=== PATIENT | male | born 1965 ===

== ENCOUNTER 2016-07-17 10:30 | Inpatient (IN) | payer OTHER ==
[~2016-07-17] VITALS: Ht 165.1 cm; Wt 79.8 kg
[2016-08-07] VITALS (10 sets, daily range): BP systolic 113–145; BP diastolic 78–102
[2016-08-07] MEDS ORDERED: ceFAZolin 2gm/50ml Premix 50 ML IVPB ONE (07:00)
[2016-08-07] MEDS ORDERED: Surgicel 4in x 8in TOPIC ONE (10:49)
[2016-08-07] MEDS ORDERED: Thrombin 5000 units TOPIC ONE (10:49)
[2016-08-07] MEDS ORDERED: Bacitracin 50000 Units Vial ONE (10:50)
[2016-08-07] MEDS ORDERED: Vancomycin 1gm inj IVPB ONE (10:50)
[2016-08-07] MEDS ORDERED: Bupivacaine w/Epi 0.5% 30ml Vial INJ ONE (10:50)
[2016-08-07] MEDS ORDERED: SIMVASTATIN20 MG ORAL (11:09)
[2016-08-07] MEDS ORDERED: METFORMIN HCL500 M1 ORAL (11:09)
--- NOTE | 2016-08-07 11:12 | Pre-Procedure Note/Attestation ---
Pre-Procedure Note/Attestation Complete Prior to Procedure Planned Procedure: not applicable Procedure Narrative: Anterior cervical discectomy and fusion of C56, 45 Indications for Procedure Pre-Operative Diagnosis: herniation C56,45 Attestation I attest that I discussed the nature of the procedure; its benefits; risks and complications; and alternatives (and the risks and benefits of such alternatives ), prior to the procedure, with the patient (or the patient's legal printing sales representative). I attest that, if there was a reasonable possibility of needing a blood transfusion, the patient (or the patient's legal printing sales representative) was given the [facility] standardized written summary, pursuant to the Omar Beto Blood Safety Act ([place] Health and Safety Code # 1645, as amended). I attest that I re-evaluated the patient just prior to the surgery and that there has been no change in the patient's H&P, except as documented below: GISELA DONIS Aug 07, 2016 11:12
--- NOTE | 2016-08-07 11:13 | Brief Operative Note ---
Immediate Post Operative Note Operative Note Chief Complaint: intractable neck pain and arm pain Pre-op Diagnosis: herniation C56,45 Procedure: Anterior discectomy and fusion of C45 and 56 Post-op Diagnosis: same as pre-op Findings: consistent w/pre-op dx studies Surgeon: Filippo Customer Program Specialist: Jessie Anesthesiologist: Lorenzo Anesthesia: general Specimen: none Complications: none Condition: stable Estimated Blood Loss: minimal Implant(s) used?: Yes - Nuvsive Interlock C disc 6 Peek GISELA DONIS Aug 07, 2016 11:13
[2016-08-07] MEDS ORDERED: Sterile Water Irrig 1000ml IRRIG ONE (12:00)
[2016-08-07] MEDS ORDERED: NS Irrig 1000ml ONE (12:00)
[2016-08-07] MEDS ORDERED: Lidocaine 1% MPF 10mg/ml 5ml ONE (12:00)
[2016-08-07] MEDS ORDERED: Glycopyrrolate 0.2mg/ml 1ml Vial ONE (12:00)
[2016-08-07] MEDS ORDERED: fentaNYL 250mcg/5ml ONE (12:00)
[2016-08-07] MEDS ORDERED: fentaNYL 100 mcg/2 mL IV ONE (12:00)
[2016-08-07] MEDS ORDERED: Neostigmine 1mg/ml 10ml Inj ONE (12:00)
[2016-08-07] MEDS ORDERED: LR 1000ml ONE (12:00)
[2016-08-07] MEDS ORDERED: Propofol 10mg/ml 20ml IV ONE (12:00)
[2016-08-07] MEDS ORDERED: Zemuron 50mg/5ml Inj IV ONE (12:00)
[2016-08-07] MEDS ORDERED: LR 1000ml 1,000 ML IVLG SCH (13:22)
--- NOTE | 2016-08-07 13:22 | Anethesia Preoperative Eval ---
Anesthesia Pre-op PMH/ROS General Date of Evaluation: Aug 07, 2016 Time of Evaluation: 12:06 Anesthesiologist: Lorenzo ASA Score: ASA 3 Mallampati Score Class I : Soft palate, uvula, fauces, pillars visible Class II: Soft palate, uvula, fauces visible Class III: Soft palate, base of uvula visible Class IV: Only hard plate visible Mallampati Classification: Class III Surgeon: Filippo Anesthesia History: none Social History: current smoker Family History: no anesthesia problems Allergies: Coded Allergies: No Known Allergies (Unverified , 08/04/16) Medications: see eMAR Past Medical History Cardiovascular: Reports: HTN, other - HL Endocrine: Reports: DM Other: obesity - BMI 30 PSxH Narrative: R Shoulder SX, RIH repair Anesthesia Pre-op Phys. Exam Physician Exam Last Vital Signs Date Time Temp Pulse Resp B/P Pulse Ox O2 Delivery O2 Flow Rate FiO2 08/07/16 10:55 97.4 60 18 113/78 96 Room Air Constitutional: NAD Neurologic: CN 2-12 intact Cardiovascular: RRR Respiratory: CTA Gastrointestinal: S/NT/ND Airway Exam Mallampati Score: Class III MO: limited ROM: limited Teeth: missing Anesthesia Pre-op A/P Risk Assessment & Plan Assessment: ASA 3 Plan: GA, BIS, Glidescope Status Change Before Surgery: No Pre-Antibiotics Dru Grams Ancef IV Given Within 1 Hr of Incision: Yes Time Given: 12:21 Stefan Ventura MD Aug 07, 2016 13:22
--- NOTE | 2016-08-07 13:25 | Immediate Post-Op Evaluation ---
Immediate Post-Op Evalulation Immediate Post-Op Evalulation Procedure: ACDF C4-5, C5-6 Date of Evaluation: Aug 07, 2016 Time of Evaluation: 14:53 IV Fluids: 1000 LR Blood Products: 0 Estimated Blood Loss: 25 Urinary Output: 300 Blood Pressure Systolic: 146 Blood Pressure Diastolic: 102 Pulse Rate: 83 Respiratory Rate: 16 O2 Sat by Pulse Oximetry: 100 Temperature (Fahrenheit): 97 Pain Score (1-10): 3 Nausea: No Vomiting: No Complications 0 Patient Status: awake, reacts, patent, extubated, none Hydration Status: adequate Dru Grams Ancef IV Given Within 1 Hr of Incision: Yes Time Given: 12:21 Stefan Ventura MD Aug 07, 2016 13:25
--- NOTE | 2016-08-07 13:26 | 48 Hour Post Anesthesia Eval ---
Post Anesthesia Evaluation Procedure: ACDF C4-5, C5-6 Date of Evaluation: Aug 07, 2016 Time of Evaluation: 16:56 Blood Pressure Systolic: 137 0: 83 Pulse Rate: 72 Respiratory Rate: 18 Temperature (Fahrenheit): 98.2 O2 Sat by Pulse Oximetry: 99 Airway: patent Nausea: No Vomiting: No Pain Intensity: 3 Hydration Status: adequate Cardiopulmonary Status: Stable Mental Status/LOC: patient returned to baseline Follow-up Care/Observations: 0 Post-Anesthesia Complications: 0 Follow-up care needed: N/A Stefan Ventura MD Aug 07, 2016 13:26
[2016-08-07] MEDS ORDERED: Midazolam 2mg/2ml Inj IVP PRN (13:30)
[2016-08-07] MEDS ORDERED: LORazepam Inj 2mg/ml 1ml IV PRN (13:30)
[2016-08-07] MEDS ORDERED: Ketorolac 60mg Inj IV PRN (13:30)
[2016-08-07] MEDS ORDERED: Metoclopramide 10mg/2ml Inj IVP PRN ×2 (13:30→17:00)
[2016-08-07] MEDS ORDERED: Hydromorphone 0.5mg/0.5ml inj IVP PRN (13:30)
[2016-08-07] MEDS ORDERED: Norco 5mg/325mg tab ORAL PRN ×2 (13:30→17:00)
[2016-08-07] MEDS ORDERED: Labetalol 5mg/ml 20ml vial IV PRN (13:30)
[2016-08-07] MEDS ORDERED: Norco 7.5mg/325mg tab ORAL PRN ×3 (13:30→17:00)
[2016-08-07] MEDS ORDERED: Oxycodone/Acetaminophen 5-325 ORAL PRN (13:30)
[2016-08-07] MEDS ORDERED: fentaNYL 100 mcg/2 mL IV PRN (13:30)
[2016-08-07] MEDS ORDERED: Meperidine 25mg/ml Inj IV PRN (13:30)
[2016-08-07] MEDS ORDERED: DiphenhydrAMINE 50mg/ml Inj IVP PRN (13:30)
[2016-08-07] MEDS ORDERED: Atropine Inj 1mg/10ml Syr IV PRN (13:30)
[2016-08-07] MEDS ORDERED: Ketorolac 30mg Inj IV PRN (13:30)
[2016-08-07] MEDS ORDERED: Acetaminophen (Non formulary) 100 ML IV ONE (14:45)
[2016-08-07] MEDS ORDERED: Milk of Magnesia 30ml Ud ORAL PRN (17:00)
[2016-08-07] MEDS ORDERED: HYDROmorphone 1mg/ml Carpuject SUBQ PRN (17:00)
[2016-08-07] MEDS ORDERED: HYDROmorphone 1mg/ml Carpuject IVP PRN (17:00)
[2016-08-07] MEDS ORDERED: Naloxone 0.4mg/ml Inj IVP PRN (17:00)
[2016-08-07] MEDS: Dexamethasone 4mg/ml vial IVP SCH (18:37)
[2016-08-07] MEDS: NS w/KCl 20mEq 1,000 ML IV SCH (18:37)
[2016-08-07] MEDS: ceFAZolin sod 1 GM in D5W 55 ML IV SCH (21:45)
[2016-08-08] MEDS: Dexamethasone 4mg/ml vial IVP SCH ×3 (01:34→12:39)
[2016-08-08] MEDS: NS w/KCl 20mEq 1,000 ML IV SCH (03:51)
[2016-08-08] MEDS: ceFAZolin sod 1 GM in D5W 55 ML IV SCH ×2 (03:51→11:39)
[2016-08-08 04:00] VITALS: BP 130/84
[2016-08-08 08:00] VITALS: BP 138/83
[2016-08-08] MEDS ORDERED: metFORMIN 500mg tab ORAL SCH (09:00)
[2016-08-08] MEDS ORDERED: Influenza Virus Vaccine 0.5ml IM ONE (10:00)
--- NOTE | 2016-08-08 10:15 | History and Physical ---
History of Present Illness General Date patient seen: Aug 07, 2016 Time patient seen: 10:12 Present Illness HPI 51 yo M with intractable neck pain and arm pain 2/2 herniation of disc C56,45 presents for Anterior discectomy and fusion of C45 and 56 Allergies: Coded Allergies: No Known Allergies (Unverified , 08/04/16) Medication History Scheduled Metformin Hcl* (Metformin Hcl*), 500 MG ORAL TWICE A DAY, (Reported) Simvastatin (Zocor), 20 MG ORAL BEDTIME, (Reported) Patient History Healthcare decision maker Resuscitation status Full Code Advanced Directive on File No Past Medical/Surgical History Past Medical/Surgical History: (1) HNP (herniated nucleus pulposus), cervical (2) Hyperlipemia (3) Diabetes mellitus Family History Family History: Patient reports no known family medical history. Social History Social History: (1) No significant social history Review of Systems All Other Systems: negative except mentioned in HPI Physical Exam General Appearance: no apparent distress, alert HEENT: normocephalic, atraumatic, anicteric, mucous membranes moist, PERRL, EOMI, pharynx normal, no JVD Neck: non-tender, supple Respiratory/Chest: lungs clear, normal breath sounds, no respiratory distress, no accessory muscle use Cardiovascular/Chest: normal peripheral pulses, normal rate, regular rhythm Abdomen: normal bowel sounds, non tender, soft, no mass Extremities: non-tender, normal inspection Skin Exam: warm/dry, other - cervical incision c/d/i Neurologic: seaman II-XII grossly normal, no motor/sensory deficits, alert Musculoskeletal: normal muscle bulk Last 24 Hour Vital Signs Date Time Temp Pulse Resp B/P Pulse Ox O2 Delivery O2 Flow Rate FiO2 08/08/16 08:00 97.7 95 18 138/83 95 Room Air 08/08/16 04:00 97.9 89 21 130/84 95 Room Air 08/07/16 22:43 97.2 74 20 118/82 100 Room Air 08/07/16 16:00 97.0 59 16 137/82 98 Room Air 08/07/16 15:45 58 18 138/81 100 Nasal Cannula 2.0 08/07/16 15:30 56 18 143/87 100 Nasal Cannula 2.0 08/07/16 15:15 55 18 143/97 100 Nasal Cannula 2.0 08/07/16 15:03 58 19 137/83 100 Simple Mask 6.0 08/07/16 14:53 65 19 129/79 100 Simple Mask 6.0 08/07/16 14:48 79 19 145/98 100 Simple Mask 6.0 08/07/16 14:46 72 18 99 08/07/16 14:45 98.2 08/07/16 14:45 83 16 100 08/07/16 14:43 97.0 86 18 144/102 100 Simple Mask 6.0 08/07/16 10:55 97.4 60 18 113/78 96 Room Air Intake and Output 08/07/16 08/08/16 19:00 07:00 Intake Total 1200 ml 1160 ml Output Total 475 ml 2600 ml Balance 725 ml -1440 ml Intake Oral 360 ml IV Total 1200 ml 800 ml Output Urine Total 450 ml 2600 ml Estimated Blood Loss 25 ml Height (Feet): 5 Height (Inches): 5.00 Weight (Pounds): 176 Medications Current Medications Medications (Trade) Dose Ordered Sig/Sascha Route PRN Reason Start Time Stop Time Status Last Admin Dose Admin Acetaminophen (Tylenol) 650 mg Q4H PRN ORAL headache or temp>101 08/07/16 17:00 09/06/16 16:59 Acetaminophen/ Hydrocodone Bitart ([place] 5/325) 1 tab Q3H PRN ORAL Mild Pain (Pain Scale 1-3) 08/07/16 17:00 08/14/16 16:59 Acetaminophen/ Hydrocodone Bitart ([place] 7.5/325) 1 ea Q3H PRN ORAL pain score 4-6 08/07/16 17:00 08/14/16 16:59 08/07/16 16:44 Acetaminophen/ Hydrocodone Bitart ([place] 7.5/325) 2 ea Q3H PRN ORAL pain scale 7-10 08/07/16 17:00 08/14/16 16:59 Atorvastatin Calcium (Lipitor) 10 mg BEDTIME ORAL 08/08/16 21:00 09/07/16 20:59 Carisoprodol (Soma) 350 mg TIDPRN PRN ORAL SPASM 08/07/16 17:30 09/06/16 17:29 Cefazolin Sodium/ Dextrose (Ancef/D5W) 55 ml @ 110 mls/hr Q8H IV 08/07/16 20:00 08/08/16 12:29 08/08/16 03:51 Dexamethasone Sodium Phosphate (Decadron 4mg/ml vial) 4 mg Q6HR IVP 08/07/16 18:00 08/08/16 12:01 08/08/16 06:00 Hydromorphone HCl (Dilaudid) 1 mg Q4H PRN SUBQ Mild Pain (Pain Scale 1-3) 08/07/16 17:00 08/14/16 16:59 Hydromorphone HCl (Dilaudid) 2 mg Q3H PRN SUBQ Severe Pain (Pain Scale 7-10) 08/07/16 17:00 08/14/16 16:59 Hydromorphone HCl (Dilaudid) 2 mg Q4H PRN SUBQ Moderate Pain (Pain Scale 4-6) 08/07/16 17:00 08/14/16 16:59 Hydromorphone HCl 1 mg 1 mg Q2H PRN IVP Breakthrough Pain 08/07/16 17:00 08/14/16 16:59 Magnesium Hydroxide (Mom) 30 ml QIDPRN PRN ORAL Constipation 08/07/16 17:00 09/06/16 16:59 Metformin HCl (Glucophage) 500 mg BID ORAL 08/08/16 09:00 09/07/16 08:59 08/08/16 08:12 Metoclopramide HCl (Reglan) 10 mg Q6H PRN IVP Nausea & Vomiting 08/07/16 17:00 09/06/16 16:59 Naloxone HCl (Narcan) 0.1 mg PRN PRN IVP RR<12/min, pt unarousable 08/07/16 17:00 09/06/16 16:59 Ondansetron HCl (Zofran) 4 mg Q6H PRN IVP Nausea & Vomiting 08/07/16 17:00 09/06/16 16:59 Sodium Chloride (NS w/KCl 20mEq) 1,000 ml @ 100 mls/hr Q10H IV 08/07/16 17:30 09/06/16 17:29 08/08/16 03:51 Temazepam (Restoril) 15 mg HSPRN PRN ORAL Insomnia 08/07/16 21:00 08/14/16 20:59 Assessment/Plan Problem List: (1) HNP (herniated nucleus pulposus), cervical ICD Codes: M50.20 - Other cervical disc displacement, unspecified cervical region SNOMED: 11770906 (2) Diabetes mellitus ICD Codes: E11.9 - Type 2 diabetes mellitus without complications SNOMED: 58403119 (3) Hyperlipemia ICD Codes: E78.5 - Hyperlipidemia, unspecified SNOMED: 16786827 Status: stable Assessment/Plan pain control IS PT/OT bowel regimen cont statin insulin and Lis Connor M.D. Aug 08, 2016 10:15
--- NOTE | 2016-08-08 10:17 | Discharge Summary ---
Discharge Summary Hospital Course Date of Admission Aug 07, 2016 at 10:29 Date of Discharge 08/08/16 Admitting Diagnosis ZUNILDA Cummings is a 51 year old male who was admitted on Aug 07, 2016 at 10:29 for Cervical Herniated Disc Consultations ortho spine surgery Hospital Course 51 yo M with intractable neck pain and arm pain 2/2 herniation of disc C56,45 s/ p Anterior discectomy and fusion of C45 and 56. Uneventful post op course; dc pod 1 Discharge Medications Continued Medications: Metformin Hcl* (Metformin Hcl*) 500 Mg Tablet 500 MG ORAL TWICE A DAY, TAB Simvastatin (Zocor) 20 Mg Tablet 20 MG ORAL BEDTIME, TAB Discharge Condition Upon Discharge: stable Discharge Disposition Patient was discharged to Home (01) Discharge Diagnoses: (1) HNP (herniated nucleus pulposus), cervical (2) Diabetes mellitus (3) Hyperlipemia Lis Prasad M.D. Aug 08, 2016 10:17
[2016-08-08 12:11] VITALS: BP 138/78
[2016-08-08] MEDS ORDERED: Tubing IV Secondary IV ONE (13:41)
--- NOTE | 2016-08-08 21:57 | Operative Note - Dictated ---
DATE OF OPERATION: 08/07/2016 SURGEON: Lewis Barkley M.D., orthopedic spine surgeon. HIGH SCHOOL FOOTBALL COACH SURGEON: Gaurang Roman M.D. PREOPERATIVE DIAGNOSES: 1. Intractable neck pain. 2. Radiculopathy. 3. Herniation, C4-5 and C5-6. 4. Neural foraminal stenosis, C4-5 and C5-6. POSTOPERATIVE DIAGNOSES: 1. Intractable neck pain. 2. Radiculopathy. 3. Herniation, C4-5 and C5-6. 4. Neural foraminal stenosis, C4-5 and C5-6. PROCEDURE PERFORMED: 1. Anterior cervical discectomy and fusion of C4-5 and C5-6 using NuVasive Interlock Cage and screws, with the insertion of allograft Osteocel bone. 2. Use of intraoperative microscope. 3. Motor evoked potential monitoring. 4. Somatosensory evoked potential monitoring. 5. Supervision and interpretation of fluoroscopy. COMPLICATIONS: None. ANESTHESIA: General. ESTIMATED BLOOD LOSS: Less than 100 mL. INDICATIONS FOR SURGERY: This patient is a 51-year-old male who has a history of intractable neck pain; radiculopathy; herniation, C4-5 and C5-6; and neural foraminal stenosis, C4-5 and C5-6. We tried a course of conservative management but despite this course there was still a significant component of persistent, recalcitrant neck pain and arm pain. The MRI demonstrated significant neural foraminal compromise secondary to disc herniations at C4-5 and C5-6. We had a long discussion with Geovany regarding the risks and benefits of surgery. Our discussion included but was not limited to nonoperative management, chiropractic management, another epidural steroid injection as well definitive management in the form of surgery. We recommended an anterior cervical discectomy and fusion of C4-5 and C5-6 using NuVasive Interlock Cage and screws, with the insertion of allograft Osteocel bone as final definitive management. We reviewed the risks and benefits of surgery with the patient. Our discussion included a comprehensive review of the clinical issues and the nature of the clinical decision. We reviewed the alternatives, including doing nothing. The patient elected to proceed accordingly with anterior cervical discectomy and fusion of C4-5 and C5-6 using NuVasive Interlock Cage and screws, with the insertion of allograft Osteocel bone. We had a long discussion regarding the risks, alternatives and benefits of surgery. Our description of the risks included a discussion in person as well as a signed consent which detailed all pertinent risks from the procedure itself. Briefly, our discussion included but was not limited to infection, bleeding, pseudarthrosis, spinal cord injury, neurovascular injury, dural tear, CSF leak, neuropathy, paralysis, permanent weakness/drop foot/drop arm, paresthesias, blindness, palsy and weakness. The patient understood there may be a need for a revision surgery or additional procedures. Approach-related complications including dysphonia, dysphagia, blindness, permanent vocal cord and neural injury, hematoma, swallowing and breathing difficulty. Medical complications were reviewed including liver, kidney, shock, cardiopulmonary failure, anesthesia complications including , swelling, damage to the musculature, larynx/voice injury or loss, esophagus/throat, trachea, blood vessels and muscles/muscular sprain and lungs/pneumothorax during this surgical procedure; injury to deeper structures may be temporary or permanent. After this review of risks, the patient understood these and elected to proceed. A written and verbal consent was given. We discussed the pros and cons of all the alternatives. We discussed the uncertainties associated with the decision. Afterwards I assessed the patient's understanding and explored their preferences. All questions were answered and no guarantees were given. Medical clearance was obtained prior to surgery. INTRAOPERATIVE FINDINGS: A broad based disc herniation which was found posterior to a tear/rent in the posterior longitudinal ligament causing a considerable amount of neural foraminal stenosis with significant encroachment on the neural foramina and spinal cord. DESCRIPTION OF PROCEDURE: Under the benefit of general endotracheal anesthesia and with the assistance of the entire operative team, the patient was moved from the [facility] onto the operative table in the supine position. The head was secured and carefully positioned appropriately. Bilateral arms were secured with GelPads and foam and all bony prominences were padded. For the bilateral lower extremities SCD and BRIAN hose were placed for DVT prophylaxis. A surgical timeout was called which corroborated our planned procedure of anterior cervical discectomy and fusion of C4-5 and C5-6 using NuVasive Interlock Cage and screws, with the insertion of allograft Osteocel bone. Preoperative antibiotics were administered within 30 minutes of the incision for antibiotic prophylaxis. Using lateral fluoroscopic radiography, the operative levels were delineated. Next the wound was prepped and draped with Chlorhexidine and sterile drapes. An incision was based on lateral fluoroscopy and we centered our incision at the C4-5 and C5-6 interspace and next using a standard Strong-Rudolph anterior based approach the incision was taken down through the skin and subcutaneous tissues until the vertebral bodies and their corresponding disc spaces were visualized. A needle was placed into the interspace to confirm placement of the operative interspace and we performed the remainder of procedure under microscopic visualization. Next, using a bipolar and Bovie cautery to ensure meticulous hemostasis, the longus colli was mobilized bilaterally and retractors were placed deep to the longus colli bilaterally to address retraction. Next we turned our attention to the radical anterior discectomy. This was initially performed at C4-5 first by using a 15 blade scalpel followed by narrow pituitaries and a micro-sect 5-B curette was used to denude the endplate of all cartilaginous tissue. Next using a Midas Duong AM8 drillbit the vertebral endplates were removed in a mupk-ux-awld and layer by layer fashion, and ultimately the posterior uncinate joints bilaterally and posterior osteophytic lips and margins causing central and lateral impingement were carefully denuded until visualization of the posterior longitudinal ligament was possible. An endplate preparation was performed in the exact same fashion using an intervertebral type cutter, sequential distraction was obtained throughout the disc space. We saw a tear/rent in the PLL and this was carefully mobilized and dissected using a micro-set 1-B curet until we visualized a broad-based disc herniation with compression of the spinal cord as well as neural foramina. This neural foraminal compression was carefully resected using a Kerrison-1 and Kerrison-2 rongeurs until complete decompression of the spinal cord was visualized and complete decompression of the neural foramina and nerve root therein as well as the axilla and lateral margin of the nerve root was visualized and subsequently completely decompressed. The family was notified at one hour intervals throughout the procedure to provide for consistent updates. Next we turned our attention to the radical anterior discectomy at the C5-6 level. First by using a 15 blade scalpel followed by narrow pituitaries and a micro-sect 5-B curette was used to denude the endplate of all cartilaginous tissue. Next using a Midas Duong AM8 drillbit the vertebral endplates were removed in a iadu-ks-fsly and layer by layer fashion, and ultimately the posterior uncinate joints bilaterally and posterior osteophytic lips and margins causing central and lateral impingement were carefully denuded until visualization of the posterior longitudinal ligament was possible. An endplate preparation was performed in the exact same fashion using an intervertebral type cutter, sequential distraction was obtained throughout the disc space. We saw a tear/rent in the PLL and this was carefully mobilized and dissected using a micro-set 1-B curet until we visualized a broad-based disc herniation with compression of the spinal cord as well neural foramina bilaterally. This neural foraminal compression was carefully resected using a Kerrison-1 and Kerrison-2 rongeurs until complete decompression of the spinal cord was visualized and complete decompression of the neural foramina and nerve root therein as well as the axilla and lateral margin of the nerve root was visualized and subsequently completely decompressed. We next turned our attention towards trialing our implant within the disc space. We initially tried size 5 and afterwards size 6 trial from the [employer] system at each level, which appeared to be appropriate under AP and lateral fluoroscopy as well as in terms of its height, depth, width and lack of toggle. The PEEK polyetheretherketone interbody cages were then both packed with allograft bone from Osteocel and local autograft bone matrix. Next these were then carefully advanced and secured into their intervertebral spaces under direct visualization and with supervision of AP and lateral fluoroscopic views. We next turned our attention towards plating. Plating was performed with [employer] interlock-C plating system. Screws were inserted and confirmed under AP and lateral fluoroscopy and confirmed to be in excellent position. After a finger sweep we confirmed removal of all sponges. The retractor was removed and we next turned our attention to meticulous hemostasis with FloSeal and bipolar cautery. After the sponge and needle count was again found to be correct with our second count, we next turned our attention to closure. The wound was again copiously irrigated with antibiotic impregnated saline. Closure consisted of 4-0 clear nylon for the platysma, and 6-0 clear nylon for the superficial skin. Final skin closure and dressings consisted of Dermabond. Prior to final closure, a final radiograph was obtained which demonstrated the hardware is intact with excellent position throughout. The patient tolerated the procedure well. The patient was carefully extubated after the conclusion of surgery. We discussed the findings of the surgery with the family upon completion of the case. At this point the patient was transferred to the spine floor for further observation. Lewis Barkley M.D. DR: FRANCOISE JOB#: [id number] CC: ODIN
--- NOTE | 2016-08-08 22:07 | Discharge Summary ---
DATE OF ADMISSION: 08/07/2016 DATE OF DISCHARGE: 08/08/2016 PROCEDURE PERFORMED DURING ADMISSION: Anterior cervical discectomy and fusion at C4-5 and C5-6. REASON FOR ADMISSION: Herniated disc at C4-5 and C5-6. HOSPITAL COURSE/TREATMENT RENDERED: DISCHARGE PHYSICAL EXAM: 1. Patient was ambulating with and without the assistance of physical therapy. 2. Prior to discharge home incision was clean and dry with minimal swelling. 3. Follows commands. 4. Alert and oriented. 5. Sams discontinued, voiding. 6. Incentive spirometer at bedside. 7. IVF hep locked. MOTOR: Demonstrates expected postoperative bulk and tone. Moves biceps, triceps, and deltoid musculature on command. Moves hip flexors, quadriceps, tibialis anterior, EHL, gastrocsoleus musculature on command as well. TREATMENT RENDERED: 1. Daily nursing care. 2. Physical Therapy. 3. Occupational Therapy. 4. Intravenous medications. 5. Oral medications. 6. Daily postoperative examinations by Spine surgery team. CONDITION OF PATIENT ON DISCHARGE: The condition on discharge is stable for discharge to home. DISCHARGE INSTRUCTIONS: Our specific instructions relating to physical activity, medications diet and follow-up care are detailed in our standard operative folder and were given to this patient prior to surgery. We will however summarize these briefly as stated below. Regarding physical activity we would like the patient to limit their flexion, extension and rotation. We also require a limitation on their bending lifting and twisting. All medication has been called in prior to surgery to their pharmacy of choice. They can resume their regular diet once tolerated. We would like them to shower and limit soaking the wound in a tub/Jacuzzi/the ocean for a period of one month or until the incision is completely healed. We will have them follow up in our office in three weeks time for their regularly scheduled appointment. They understand to call our office tomorrow to schedule the time for their three week followup appointment. The patient will notify us should they experience any increase in the severity of pain, redness/swelling/ or drainage from their incision. Lewis Barkley M.D. DR: FRANCOISE JOB#: [id number] CC:
--- NOTE | 2016-08-25 14:18 | Diagnostic Imaging Report ---
Indication: PAIN intraoperative imaging Technique: Digital intraoperative images Comparison: None Findings: Intraoperative images document placement of disc spacers and fusion hardware at the level of the C4-5 and C5-6 discs. Impression: Intraoperative images, as described
== END 2016-08-08 13:42 | disposition home or self-care (01) | DRG 473 ==
LOC: SDSOVERFLO 08-07 10:29 → 3E 08-07 16:25
PROC: 0RG20A0 Fusion of 2 or more Cervical Vertebral Joints with Interbody Fusion Device, Anterior Approach, Anterior Column, Open Approach (ICD-10-PCS; principal; 2016-08-07 12:30)
PROC: 0RT30ZZ Resection of Cervical Vertebral Disc, Open Approach (ICD-10-PCS; principal; 2016-08-07 12:30)
DX: M50.121 Cervical disc disorder at C4-C5 level with radiculopathy (principal); M48.02 Spinal stenosis, cervical region; E78.5 Hyperlipidemia, unspecified; E11.9 Type 2 diabetes mellitus without complications; V89.2XXA Person injured in unspecified motor-vehicle accident, traffic, initial encounter
CPT/HCPCS: 36415; 72040; 76001; 82962; 86850; 86900; 86901; 87081; 94003; 94150; J2405; J2710; Q2036